=== PATIENT | female | born 1975 | race Caucasian/White ===

== ENCOUNTER 2021-07-09 02:37 | Emergency (ER) | payer OTHER ==
[~2021-07-09 02:37] MED LIST: AMOXICILLIN500 MG PO; BACTRIM DS TAB1 EACH PO; IBUPROFEN800 MG PO; NAPROSYN500 MG PO; ZOFRAN ODT 4 MG4 MG PO; ZOFRAN4 MG PO
[2021-07-09] MEDS ORDERED: PREDNISONE 20 M20 MG PO (03:26)
[2021-07-09] MEDS ORDERED: CEPHALEXIN500 M1 PO (03:26)
== END 2021-07-09 03:48 | disposition home or self-care (01) ==
LOC: ER1 02:37
DX: S90.862A Insect bite (nonvenomous), left foot, initial encounter (principal); F17.200 Nicotine dependence, unspecified, uncomplicated; W57.XXXA Bitten or stung by nonvenomous insect and other nonvenomous arthropods, initial encounter
CPT/HCPCS: 99281